=== PATIENT | male | born 1960 | race Caucasian/White ===

== ENCOUNTER 2017-04-29 20:34 | Inpatient (IN) | payer MEDICARE, OTHER ==
[~2017-04-29] VITALS: Ht 188 cm; Wt 77.1 kg
[2017-04-29] MEDS ORDERED: IV NORMAL SALINE 1000 ML BAG IV ONE (21:15)
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
[2017-04-29 21:30] LABS: BASOPHILS # (AUTO) 0.1 K/uL (0.0-8.0); EOSINOPHILS # (AUTO) 0.1 K/uL (0.0-0.7); EOSINOPHILS % (AUTO) 1.4 % (0.0-7.0); HEMOGLOBIN 15.6 G/DL (14.0-18.0); LYMPHOCYTES # (AUTO) 2.7 K/UL (0.8-4.8); LYMPHOCYTES % (AUTO) 28.1 % (20.5-51.5); MEAN CORPUSCULAR HEMOGLOBIN 27.9 UUG (27.0-31.0); MEAN CORPUSCULAR HGB CONC 33 g/dL (32.0-37.0); MEAN CORPUSCULAR VOLUME 84.3 FL (82.0-92.0); MONOCYTES # (AUTO) 0.9 K/UL (0.1-1.30); NEUTROPHILS % (AUTO) 60.5 % (38.5-71.5); PLATELET COUNT (AUTO) 308 K/UL (150-450); RED BLOOD CELL COUNT(AUTO) 5.57 MIL/UL (4.7-6.1); WHITE BLOOD COUNT (AUTO) 9.8 K/UL (4.0-11.2)
[2017-04-29 21:38] LABS: CREATININE 0.8 mg/dL (0.6-1.3); POTASSIUM 3.3 mmol/L (3.5-5.1)
[2017-04-29 21:44] LABS: BILIRUBIN,DIRECT 0.1 mg/dL (0.0-0.2); BILIRUBIN,TOTAL 0.2 mg/dL (0.2-1.0)
--- NOTE | 2017-04-29 22:30 | NUR ---
Per Dr. Maria condom catheter placed on pt, straight cath not required at this time.
--- NOTE | 2017-04-29 22:54 | NUR ---
Pt to and from CT via gurmario. Pt resting in position of comfort for self. No complaints at this time.
[2017-04-29] MEDS ORDERED: POT CHLORIDE/POT BICARB/CIT AC 25 MEQ TABLET.EFF PO ONE (23:30)
--- NOTE | 2017-04-29 23:43 | NUR ---
Condom cath unsuccessful. Straight cath done per Dr. Maria. UA collected and sent. Pt resting in position of comfort for self. No complaints at this time
[2017-04-30] MEDS ORDERED: POTASSIUM BICARBONATE/CIT AC 25 MEQ TABLET.EFF ONE (00:10)
[2017-04-30 00:20] LABS: *BILIRUBIN,URIN NEGATIVE (NEGATIVE); *BLOOD, URINE NEGATIVE (NEGATIVE); *CLARITY,URINE CLEAR (CLEAR); *COLOR,URINE YELLOW (YELLOW); *KETONES,URINE NEGATIVE (NEGATIVE); *PROTEIN,URINE NEGATIVE (NEGATIVE); *UROBILINOGEN,URINE 0.2 E.U./dl (NORMAL); LEUKOCYTE ESTERASE ,URINE NEGATIVE (NEGATIVE); NITRITE, URINE NEGATIVE (NEGATIVE); PH,URINE 5.5 (5.0-8.0); UGLUCOSE NEGATIVE (NEGATIVE)
--- NOTE | 2017-04-30 00:44 | NUR ---
Report called to MYRIAM Ceja. Preparing to transfer pt to the floor.
[2017-04-30 01:04] LABS: BACTERIA,URINE NONE SEEN /HPF (NONE SEEN); RBC,URINE 0-3 /HPF (0-3); SQUAMOUS EPITHELIAL CELL,UR FEW /HPF (NONE SEEN); TRANSITIONAL EPI CELLS,URINE FEW /LPF (NONE SEEN); URINE AMORPHOUS URATE MODERATE /HPF; WBC,URINE 0-3 /HPF (0-3)
[2017-04-30 02:00] VITALS: BP 114/76
[2017-04-30] MEDS ORDERED: ONDANSETRON 4 MG/2 ML VIAL IV PRN (02:00)
[2017-04-30] MEDS ORDERED: ZOLPIDEM 5 MG TABLET PO PRN (02:00)
[2017-04-30] MEDS ORDERED: HYDROCODONE/APAP 5-325MG TABLET PO PRN (02:00)
[2017-04-30] MEDS ORDERED: Z GUARD REMEDY PASTE 57 GM TUBE TOP PRN (02:00)
[2017-04-30] MEDS ORDERED: MAGNESIUM HYDROXIDE 30 ML LIQUID UDC PO PRN (02:00)
--- NOTE | 2017-04-30 02:30 | NUR ---
RECEIVED PATIENT FROM E.R. ADMITTED BECAUSE OF FAILURE TO THRIVE. BROUGHT IN TO [facility] BY A PRIVATE AMBULANCE WHEREIN THE PLACE WHERE HE WAS PICKED UP IS DESCRIBED DIRTY AND UNKEMP PER E.R. NOTE. PATIENT IS A POOR HISTORIAN, NO PHM PER RECORD. PATIENT IS ALERT AND ORIENTED TO SELF, PLACE AND TIME BUT FORGETFUL AND CONFUSE AT TIMES. ON R.A. O2 SATS AT HIGH 90'S NOT ON RESPI DISTRESS OTHERWISE VITAL SIGNS ARE STABLE. NOTED ULCERATIVE SORE ON VARIOUS STAGES OF HEALING OVER RIGHT FLANK AND RASH/SORES OVER RIGHT TESTICLES, PHOTO TAKEN AND PLACED IN CHART. ANTOINE SCORE OF 12, ORDERED FOR SPECIALTY MATTRESS. ORIENTED PATIENT ABOUT THE ROOM FACILITIES. CALL LIGHT WITHIN REACH. KEPT SAFE AND MONITORED.
--- NOTE | 2017-04-30 05:56 | NUR ---
SLEPT FOR FEW HOURS. GIVEN WATER AND ABLE TO SWALLOW WITH NO ASPIRATION. ORDERED REGULAR DIET. STARTED DVT PUMPS. OTHERWISE PATIENT IS NOT IN DISTRESS. CALL LIGHT WITHIN REACH.
[2017-04-30 06:05] VITALS: BP 113/75
[2017-04-30] MEDS ORDERED: INFLUENZA VACCINE 2017-2018 0.5 ML DISP.SYRIN IM ONE (07:15)
--- NOTE | 2017-04-30 07:25 | NUR ---
RECEIVED REPORT FROM [facility] RESIDENT NURSE, PATIENT IN BED ASLEEP, NO EVIDENCE OF DISTRESS NOTED. BED IN LOW POSITION, SIDE RAILS UP X2.
--- NOTE | 2017-04-30 08:30 | NUR ---
PATIENT WAS TRANSFERRED TO A FIRST STEP MATTRESS, PATIENT WAS GIVEN A THOROUGH BED BATH AND HEAVY SCALING AND DIRT FROM LEGS AND BODY REMOVED.
[2017-04-30 11:14] VITALS: BP 108/69
[2017-04-30 15:06] VITALS: BP 142/70
[2017-04-30 20:00] VITALS: BP 105/73
--- NOTE | 2017-04-30 21:00 | NUR ---
RECEIVED PATIENT AWAKE AND COMFORTABLE IN BED. NOT IN DISTRESS NO COMPLAIN OF PAIN. INCONTINENT CARE DONE. VITAL SIGNS ARE STABLE. CALL LIGHT WITHIN REACH.
--- NOTE | 2017-05-01 06:27 | NUR ---
PATIENT SLEPT THRU THE NIGHT. NO APPARENT EVENT. INCONTINENT CARE DONE. CALL LIGHT WITHIN REACH.
[2017-05-01 06:46] LABS: BASOPHILS # (AUTO) 0.1 K/uL (0.0-8.0); BASOPHILS % (AUTO) 0.6 % (0.0-2.0); EOSINOPHILS # (AUTO) 0.2 K/uL (0.0-0.7); EOSINOPHILS % (AUTO) 1.5 % (0.0-7.0); HEMATOCRIT 43.9 % (40-50); HEMOGLOBIN 15.3 G/DL (14.0-18.0); LYMPHOCYTES # (AUTO) 3.3 K/UL (0.8-4.8); LYMPHOCYTES % (AUTO) 31.5 % (20.5-51.5); MEAN CORPUSCULAR HEMOGLOBIN 29.5 UUG (27.0-31.0); MEAN CORPUSCULAR HGB CONC 35 g/dL (32.0-37.0); MONOCYTES # (AUTO) 0.9 K/UL (0.1-1.30); MONOCYTES % (AUTO) 8.7 % (0.0-11.0); NEUTROPHILS % (AUTO) 57.7 % (38.5-71.5); PLATELET COUNT (AUTO) 286 K/UL (150-450); RED BLOOD CELL COUNT(AUTO) 5.16 MIL/UL (4.7-6.1); WHITE BLOOD COUNT (AUTO) 10.5 K/UL (4.0-11.2)
[2017-05-01 06:59] VITALS: BP 124/69
[2017-05-01 07:02] LABS: CREATININE 0.8 mg/dL (0.6-1.3); PHOSPHOROUS 3.5 mg/dL (2.5-4.9); POTASSIUM 3.7 mmol/L (3.5-5.1)
--- NOTE | 2017-05-01 07:10 | NUR ---
RECEIVED REPORT FROM ADVERTISING REPRESENTATIVE NURSE, PATIENT IN BED AWAKE, NO EVIDENCE OF DISTRESS NOTED, BED IN LOW POSITION, SIDE RAILS UP X2.
[2017-05-01 11:56] VITALS: BP 129/75
--- NOTE | 2017-05-01 12:39 | NUR ---
WOUND CARE CONSULT: PT PRESENTS WITH MULTIPLE SCARS WHICH LOOK LIKE DOTS. DEFER TO MD. ALL SKIN PROTECTION MEASURES IN PLACE. WILL SEE PRN. GEIGER IN AGREEMENT WITH PLAN OF CARE. Addendum: 05/01/17 at 1241 by DEN HANSEN RN Amended: Links added.
--- NOTE | 2017-05-01 13:00 | NUR ---
Patient was transported via ambulance to [facility] for MRI services. No evidence of distress noted at time of departure.
--- NOTE | 2017-05-01 15:00 | NUR ---
Patient returned from [facility] and notification that patient was not compliant with procedure and couldn't get the MRI complete.
[2017-05-01 16:11] VITALS: BP 131/83
--- NOTE | 2017-05-01 17:00 | NUR ---
Patient appeared to be extremely agitated, he was yelling and asking to be taken to his room. it was explained to patient that he is sick and in the hospital and thanked me. This occurred multiple times.
--- NOTE | 2017-05-01 19:30 | NUR ---
RECEIVED PATIENT IN BED, AWAKE, RESPONSE WHEN ASK QUESTION, NO SOB NO CHEST PAIN, DENIES PAIN AT THIS TIME, KEPT CLEAN AND DRY, KEPT SKIN CLEAN AND DRY, CONT TO MONITOR
[2017-05-01 20:35] VITALS: BP 103/66
--- NOTE | 2017-05-01 22:20 | NUR ---
PATIENT UNABLE TO URINATE, BLADDER SCAN WAS DONE AND PATIENT HAS 500 CC URINE RESULTS, NOTIFIED Johnny MAJANO, WITH ORDER TO DO STRAIGHT CATH IF BLADDER SCAN RESULT IS 500 CC OR MORE.
[2017-05-01] MEDS: ACETAMINOPHEN 325 MG TABLET PO PRN (22:28)
[2017-05-02 04:00] VITALS: BP 117/79
--- NOTE | 2017-05-02 04:22 | NUR ---
PATIENT SLEPT MOST OF THE NIGHT, NO SOB NO CHEST PAIN NOTED, ABDOMEN SOFT URINE IN THE DIAPER IN MODERATE AMOUNT, KEPT CLEAN AND DRY, TURN AND REPOSITION, DENIES PAIN AT THIS TIME, CALL LIGHT WITHIN REACH.
[2017-05-02 06:32] LABS: BASOPHILS # (AUTO) 0.1 K/uL (0.0-8.0); BASOPHILS % (AUTO) 0.9 % (0.0-2.0); EOSINOPHILS # (AUTO) 0.1 K/uL (0.0-0.7); EOSINOPHILS % (AUTO) 1.1 % (0.0-7.0); HEMATOCRIT 47.5 % (40-50); HEMOGLOBIN 15.9 G/DL (14.0-18.0); LYMPHOCYTES # (AUTO) 1.8 K/UL (0.8-4.8); LYMPHOCYTES % (AUTO) 18.9 % (20.5-51.5); MEAN CORPUSCULAR HEMOGLOBIN 28.8 UUG (27.0-31.0); MEAN CORPUSCULAR HGB CONC 34 g/dL (32.0-37.0); MONOCYTES # (AUTO) 0.7 K/UL (0.1-1.30); MONOCYTES % (AUTO) 7.7 % (0.0-11.0); NEUTROPHILS % (AUTO) 71.4 % (38.5-71.5); PLATELET COUNT (AUTO) 291 K/UL (150-450); RED BLOOD CELL COUNT(AUTO) 5.52 MIL/UL (4.7-6.1); WHITE BLOOD COUNT (AUTO) 9.7 K/UL (4.0-11.2)
[2017-05-02 09:57] LABS: CREATININE 0.9 mg/dL (0.6-1.3); PHOSPHOROUS 3.6 mg/dL (2.5-4.9); POTASSIUM 3.7 mmol/L (3.5-5.1)
[2017-05-02 11:32] VITALS: BP 110/70
[2017-05-02 15:45] VITALS: BP 111/75
--- NOTE | 2017-05-02 19:50 | NUR ---
PATIENT AWAKE ON BED ABLE TO VERBALIZE HIS NEEDS. SPEECH DELAYED NO DISCOMFORT NOTED. WILL CONTINUE TO MONITOR
[2017-05-02 20:00] VITALS: BP 116/81
--- NOTE | 2017-05-02 21:00 | NUR ---
PATIENT HAS AN EPISODE OF VOMITING YELLOW VOMITUS WITH FOOD PARTICLES ABOUT 200 ML. ASPIRATION PRECAUTIONS OBSERVED. NOTICED HIS ARM SHAKING FOR ABOUT 6 SECS TWO TIMES ABOUT 3 MINUTE APART. PATIENT OPEN TO EYES ON SHAKING THE PATIENT. HE IS NOT RESPONDING TO VERBAL COMMANDS. KEPT HOB ELEVATED. PLACED ON 2L O2 VIA NC. B/P 93/60 HR 125. LEFT MESSAGE TO THE DOCTOR
[2017-05-02] MEDS ORDERED: IV NS 1000 ML 1,000 ML IV ONE (21:30)
[2017-05-02] MEDS ORDERED: LORAZEPAM 2 MG/1 ML VIAL IV ONE (21:30)
--- NOTE | 2017-05-02 21:30 | NUR ---
RESPONDED WITH NEW ORDERS. HEART RATE [id number] . PLACED PATIENT ON TELEMETRY Addendum: 05/02/17 at 2231 by ZAKI GREGG RN DR. PIZANO INSTRUCTED TO CONTACT CORRECTIONAL OFFICER CAPTAIN OUTREACH WORKER IF THE HR SUSTAINS AFTER GIVING MEDICATION
[2017-05-02 22:06] LABS: ABG BASE EXCESS -0.2 mmol/L; ABG HCO3 21.1 mmol/L; ABG PCO2 26.9 mmHg (35.0-45.0); ABG PH 7.512 (7.350-7.450); ABG SITE RIGHT RADIAL; ABG TOTAL HEMOGLOBIN 16.6 G/dL (13.5-18.0); COHb 1.1 % (0.5-1.5); MetHb 0.4 % (0.0-1.5); VENT MODE Nasal Cannula
--- NOTE | 2017-05-02 22:10 | NUR ---
PAGED [facility] HR [phone]
[2017-05-02] MEDS ORDERED: DIGOXIN 500 MCG/2 ML AMP IV ONE (22:45)
[2017-05-02] MEDS ORDERED: DIGOXIN 500 MCG/2 ML AMP ONE (22:53)
[2017-05-02] MEDS ORDERED: IV NS 1000 ML 1,000 ML IV PRN (23:30)
--- NOTE | 2017-05-02 23:30 | NUR ---
PATIENT WAS SEEN BY DR. PIZANO WITH NEW ORDERS
--- NOTE | 2017-05-02 23:40 | NUR ---
PATIENT WAS PICKED UP FOR STAT CT SCAN AND STAT CHEST XRAY PER ORDER
[2017-05-03] VITALS (8 sets, daily range): BP systolic 84–123; BP diastolic 52–79
[2017-05-03] MEDS ORDERED: PIPERACILLIN/TAZO 4.5 GM VIAL IV ONE (00:14)
--- NOTE | 2017-05-03 00:15 | NUR ---
PATIENT WAS BROUGHT BACK FROM CT . PATIENT SLEEPING . DRIVER TRAINEE ON SVT WITH [id number]. KEPT PATIENT CLEAN. PATIENT HAS BMX 1. F/C DRAINING YELLOW URINE. WILL CONTINUE OT MONITOR
[2017-05-03] MEDS: PIPERACILLIN SODIUM/TAZOBACTAM 4.5 G in IV DEXTROSE 5% 50 ML IV SCH ×4 (00:25→21:58)
[2017-05-03] MEDS ORDERED: DIGOXIN 500 MCG/2 ML AMP IV ONE (01:30)
--- NOTE | 2017-05-03 01:35 | NUR ---
received patient transfer to [facility] status, heart rate remains sustained 159 bpm, bp 107/71,temp 100. notified,ordered received,Digoxin 250 mcg iv admin and Tylenol 650 mg sup for fever,patient remains sleepy ,continue closely monitor.
[2017-05-03] MEDS: ACETAMINOPHEN 650 MG SUPP.RECT RC PRN ×2 (01:37→14:18)
[2017-05-03] MEDS ORDERED: DIGOXIN 500 MCG/2 ML AMP ONE (01:46)
[2017-05-03] MEDS ORDERED: ACETAMINOPHEN 650 MG SUPP.RECT RC ONE (01:48)
--- NOTE | 2017-05-03 02:00 | NUR ---
patient sleeping, heart rate down to 145- 146, ST on monitor.
--- NOTE | 2017-05-03 04:05 | NUR ---
PATIENT REMAINS SLEEPY, HEART RATE DOWN TO 110 BPM,BP 90/52, O2 SAT 97% ON O2 2L/M.
[2017-05-03 06:29] LABS: CREATININE 1.4 mg/dL (0.6-1.3); MAGNESIUM 1.9 mg/dL (1.8-2.4); PHOSPHOROUS 2.9 mg/dL (2.5-4.9); POTASSIUM 3.6 mmol/L (3.5-5.1)
[2017-05-03 06:45] LABS: BASOPHILS # (AUTO) 0.1 K/uL (0.0-8.0); BASOPHILS % (AUTO) 0.4 % (0.0-2.0); HEMATOCRIT 47.5 % (36.7-47.1); HEMOGLOBIN 15.8 g/dL (12.5-16.3); LYMPHOCYTES # (AUTO) 0.5 K/uL (20.0-40.0); LYMPHOCYTES % (AUTO) 2.2 % (20.5-51.5); MEAN CORPUSCULAR HEMOGLOBIN 28.5 uug (23.8-33.4); MEAN CORPUSCULAR HGB CONC 33 g/dL (32.5-36.3); MEAN CORPUSCULAR VOLUME 85.5 fL (73.0-96.2); MONOCYTES # (AUTO) 0.6 K/uL (2.0-10.0); NEUTROPHILS # (AUTO) 19.7 K/uL (1.8-8.9); NEUTROPHILS % (AUTO) 94.4 % (38.5-71.5); PLATELET COUNT (AUTO) 241 K/uL (152-348); RED BLOOD CELL COUNT(AUTO) 5.55 MIL/uL (4.06-5.63)
--- NOTE | 2017-05-03 07:00 | NUR ---
PATIENT ASLEEP, TEMP 98.5, SINUS TACHYCARDIA RATE 100'S,GOOD URINE OUT PUT/SHIFT.
[2017-05-03 07:02] LABS: WHITE BLOOD COUNT (AUTO) 20.9 K/uL (3.6-10.2)
--- NOTE | 2017-05-03 08:00 | NUR ---
answers "yah" but doesn't opens eyes, slurred speech when asked questions, able to follow some simple commands like grasping my hands and lifting his legs, tele SR 90's. 02 at 2l/nc, needs attended, safety measures maintained, bed alarm on
[2017-05-03] MEDS: VANCOMYCIN IV 1,250 MG in IV DEXTROSE 5% 500 ML IV SCH (09:19)
[2017-05-03 09:24] LABS: BAND % (MANUAL) 20 % (0-10); LYMPHOCYTES % (MANUAL) 2 % (20-40); METAMYELOCYTES % 1 % (0-1); MONOCYTES % (MANUAL) 3 % (2-10); NEUTROPHILS % (MANUAL) 74 % (42-75)
--- NOTE | 2017-05-03 12:00 | NUR ---
more awake, follows simple commands, but answers only "yah" to questions in Indonesian and Ghanaian, fed by candle maker and swallows good, no choking episode noted, aspiration precaution observed, tele ST 120's
--- NOTE | 2017-05-03 12:19 | NUR ---
PHARMACY NOTE: (VANCOMYCIN DOSING) Subjective: Vancomycin to start for this 56 YO male patient for r/o aspiration & skin ulceration Objective: ht 6' 2'' wt 170 lb bun /scr 17/1.4 wbc 20.9 temp 98.6 A/P: Will start vanco 1250mg IVPB q17h for predicted vanco trough level of 15 mcg/ml at steady state. 1st dose is due today at 0930. Plan to draw vanco trough level before 4th dose (not yet ordered). Will monitor srcr/bun & adjust the dose if needed. Will monitor daily.
--- NOTE | 2017-05-03 14:18 | NUR ---
restless and grimacing- medicated with Tylenol 650mg rectally- incontinent of stool soft formed prior to medication- washed and kept clean and dry
--- NOTE | 2017-05-03 15:00 | NUR ---
brother here visiting, able to answer simple questions
--- NOTE | 2017-05-03 16:00 | NUR ---
T-99.8 inspite of tylenol 650mg rectally given earlier- cooling measures provided HR 120's
--- NOTE | 2017-05-03 17:50 | NUR ---
fed by barrer and tacker- aspiration precautions observed, no choking episode noted
--- NOTE | 2017-05-03 18:54 | NUR ---
medicated for nausea, kept head of bed elevated, no distress noted, tele ST 120's, safety measures maintained, bed alarm on
--- NOTE | 2017-05-03 19:20 | NUR ---
RECEIVED PATIENT ALERT, RESPONSIVE,ANSWER SIMPLE QUESTIONS,TEMP 98.6, NO NAUSEA NOTED, ZOFRAN EFFECTIVE,ASPIRATION PRECAUTIONS, HOB ELEVATED,SINUS TACHYCARDIA 11O'S ON MONITOR, SAFETY MEASURE MAINTAINS,ALARM ON.
--- NOTE | 2017-05-04 00:10 | NUR ---
PATIENT SLEEP INTERMITTENTLY,HEART RATE 100'S SR,NO FEVER,NO NAUSEA NOTED.
[2017-05-04] MEDS: VANCOMYCIN IV 1,250 MG in IV DEXTROSE 5% 500 ML IV SCH ×2 (02:46→14:31)
[2017-05-04 04:00] VITALS: BP 96/65
[2017-05-04] MEDS: ACETAMINOPHEN 325 MG TABLET PO PRN (05:10)
[2017-05-04] MEDS: PIPERACILLIN SODIUM/TAZOBACTAM 4.5 G in IV DEXTROSE 5% 50 ML IV SCH ×3 (06:09→21:20)
--- NOTE | 2017-05-04 06:57 | NUR ---
NO FEVER, PATIENT ALERT ,CALM AND CO OPERATIVE,TOOK FLUID WELL,ASPIRATION PRECAUTIONS OBSERVED.
[2017-05-04 07:55] VITALS: BP 92/58
--- NOTE | 2017-05-04 08:00 | NUR ---
Pt is in no acute distress. Aspiration precaution implemented. IV on right hand intact. Call light is within reach.
[2017-05-04 12:15] LABS: BASOPHILS # (AUTO) 0.1 K/uL (0.0-8.0); BASOPHILS % (AUTO) 1.3 % (0.0-2.0); EOSINOPHILS # (AUTO) 0.1 K/uL (0.0-0.7); EOSINOPHILS % (AUTO) 1.3 % (0.0-7.0); HEMATOCRIT 47.7 % (40-50); LYMPHOCYTES # (AUTO) 1.1 K/UL (0.8-4.8); LYMPHOCYTES % (AUTO) 14.4 % (20.5-51.5); MEAN CORPUSCULAR HGB CONC 32 g/dL (32.0-37.0); MEAN CORPUSCULAR VOLUME 85.5 FL (82.0-92.0); MONOCYTES # (AUTO) 0.8 K/UL (0.1-1.30); MONOCYTES % (AUTO) 10.3 % (0.0-11.0); NEUTROPHILS # (AUTO) 5.3 K/UL (1.8-8.9); NEUTROPHILS % (AUTO) 72.7 % (38.5-71.5); PLATELET COUNT (AUTO) 201 K/UL (150-450); RED BLOOD CELL COUNT(AUTO) 5.58 MIL/UL (4.7-6.1); WHITE BLOOD COUNT (AUTO) 7.4 K/UL (4.0-11.2)
[2017-05-04 12:17] LABS: CREATININE 0.9 mg/dL (0.6-1.3); POTASSIUM 3.7 mmol/L (3.5-5.1)
[2017-05-04 13:25] VITALS: BP 99/59
[2017-05-04 14:47] LABS: BAND % (MANUAL) 9 % (0-10); EOSINOPHILS % (MANUAL) 2 % (0-8); LYMPHOCYTES % (MANUAL) 15 % (20-40); MONOCYTES % (MANUAL) 10 % (2-10); NEUTROPHILS % (MANUAL) 64 % (42-75)
--- NOTE | 2017-05-04 15:04 | NUR ---
PHARMACY NOTE: (VANCOMYCIN DOSING) Subjective: Vancomycin to continue for this 56 YO male patient for r/o aspiration & skin ulceration Objective: ht 6' 2'' wt 170 lb bun /scr 12/0.9 wbc 7.4 temp 98.8 A/P: Renal function is significantly improved. Will change vanco 1250mg IVPB q17h to q11hrs for predicted vanco trough level of 15.49 mcg/ml at steady state. 2nd dose is given today at 1430. Plan to draw vanco trough level before 4th dose (ordered for tomorrow at 1200). Will monitor srcr/bun & adjust the dose if needed. Will monitor daily.
[2017-05-04 16:37] VITALS: BP 103/65
--- NOTE | 2017-05-04 18:00 | NUR ---
No aspiration noted this shift. PT had good urine output. Pt had good appetite throughout shift. Call light is within reach.
[2017-05-04 20:00] VITALS: BP 113/77
--- NOTE | 2017-05-04 20:00 | NUR ---
PATIENT AWAKE,ALERT,CO OPERATIVE,EEG DONE AT BEDSIDE,NO N/V,DENIES PAIN/DISCOMFORT.
--- NOTE | 2017-05-05 00:35 | NUR ---
PATIENT SLEEP WELL,FALL AND ASPIRATION PRECAUTION MAINTAINED, BED ALARM ON.CLOSELY MONITOR.
[2017-05-05] MEDS: VANCOMYCIN IV 1,250 MG in IV DEXTROSE 5% 500 ML IV SCH (01:22)
[2017-05-05] MEDS: PIPERACILLIN SODIUM/TAZOBACTAM 4.5 G in IV DEXTROSE 5% 50 ML IV SCH ×2 (05:39→13:03)
[2017-05-05 06:08] VITALS: BP 122/89
--- NOTE | 2017-05-05 06:41 | NUR ---
PATIENT IS AFEBRILE,MORE ALERT,NO SEIZURE/SHAKING ACTIVITY, URINE CLOUDY, LARGE AMOUNT.
--- NOTE | 2017-05-05 07:30 | NUR ---
RECEIVED PATIENT ON FIRST STEP IFEANYI AWAKE ALERT TO SELFWITH CONFUSSION AND DISORIENTATION TOTALLY DEPENDENT ON NURSES FOR ALL ADL.TURNED AND REPOSITIONED ON ROOM AIR WITH NO SHORTNESS OF BREATH REMAIN ON ATB ORDERED WITH NO ADVERSE OR ALLERGIC REACTIONS AT THIS TIME.MADE COMFORTABLE AND WILL CONTINUE TO OBSERVE.
[2017-05-05] MEDS: LACTOBACILLUS RHAMNOSUS GG 1 EACH CAPSULE PO SCH ×2 (08:17→20:58)
[2017-05-05 11:09] VITALS: BP 117/75
[2017-05-05 11:22] LABS: BASOPHILS # (AUTO) 0.1 K/uL (0.0-8.0); BASOPHILS % (AUTO) 0.8 % (0.0-2.0); EOSINOPHILS # (AUTO) 0.1 K/uL (0.0-0.7); EOSINOPHILS % (AUTO) 0.8 % (0.0-7.0); HEMATOCRIT 47.1 % (40-50); HEMOGLOBIN 15.9 G/DL (14.0-18.0); LYMPHOCYTES # (AUTO) 1.4 K/UL (0.8-4.8); LYMPHOCYTES % (AUTO) 21.5 % (20.5-51.5); MEAN CORPUSCULAR HEMOGLOBIN 28.5 UUG (27.0-31.0); MEAN CORPUSCULAR HGB CONC 34 g/dL (32.0-37.0); MEAN CORPUSCULAR VOLUME 84.3 FL (82.0-92.0); MONOCYTES # (AUTO) 0.6 K/UL (0.1-1.30); MONOCYTES % (AUTO) 9.3 % (0.0-11.0); NEUTROPHILS # (AUTO) 4.2 K/UL (1.8-8.9); NEUTROPHILS % (AUTO) 67.6 % (38.5-71.5); PLATELET COUNT (AUTO) 243 K/UL (150-450); RED BLOOD CELL COUNT(AUTO) 5.59 MIL/UL (4.7-6.1); WHITE BLOOD COUNT (AUTO) 6.4 K/UL (4.0-11.2)
[2017-05-05 11:39] LABS: BILIRUBIN,TOTAL 0.3 mg/dL (0.2-1.0); MAGNESIUM 2.3 mg/dL (1.8-2.4); PHOSPHOROUS 3.4 mg/dL (2.5-4.9); POTASSIUM 3.9 mmol/L (3.5-5.1); TOTAL PROTEIN, SERUM 7.8 g/dL (6.4-8.2)
[2017-05-05 11:51] LABS: THYROID STIMULATING HORMONE 1.547 mIU/mL (0.358-3.740)
[2017-05-05] MEDS ORDERED: LEVOFLOXACIN 500 MG TABLET PO SCH (14:00)
[2017-05-05] MEDS ORDERED: ACET325T53 PO (14:06)
[2017-05-05] MEDS ORDERED: LACT1CAP57 PO (14:06)
[2017-05-05] MEDS ORDERED: LEVO500T2 PO (14:06)
--- NOTE | 2017-05-05 14:11 | NUR ---
ORDER TO DISCHARGE PATIENT TO SNF TODAY RECEIVED AND CARRIED OUT
[2017-05-05 15:04] VITALS: BP 100/68
--- NOTE | 2017-05-05 15:37 | NUR ---
PATIENTS BROTHER ZAK PETERSON HERE AND AWARE THAT PATIENT WILL BE DISCHARGED TO TO [facility] TODAY AND HE STATED OKAY WILL GO THERE TOMORROW TO SEE PATIENT.PATIENT AWARE BUT HE IS CONFUSED AND DISORIENTED.
--- NOTE | 2017-05-05 17:49 | NUR ---
CALLED [facility] SPOKE WITH ERIN AND REPORT GIVEN FOR CONTINUING CARE..
--- NOTE | 2017-05-05 18:49 | NUR ---
AWAITING FOR PATIENT TO BE PICKED UP BY THE AMBULANCE.ENDORSED
[2017-05-05 20:00] VITALS: BP 110/77
--- NOTE | 2017-05-05 21:47 | NUR ---
nsg: pt picked up by ambulance. v/s stable.
== END 2017-05-05 22:30 | DRG 640 ==
LOC: ER 20:35 → MED 04-30 00:39 → TELE-TD 05-02 22:38 → TELE 05-04 13:33 → MED 05-04 15:00
PROVIDERS: ADMIT Nurse Practitioner Acute Care; ATTEND Internal Medicine
DX: R62.7 Adult failure to thrive (principal); N17.0 Acute kidney failure with tubular necrosis; E87.3 Alkalosis; E44.0 Moderate protein-calorie malnutrition; I47.1 Supraventricular tachycardia; E87.1 Hypo-osmolality and hyponatremia; G35 Multiple sclerosis; E87.6 Hypokalemia; D72.829 Elevated white blood cell count, unspecified; Z87.891 Personal history of nicotine dependence; R53.1 Weakness; F19.11 Other psychoactive substance abuse, in remission; R73.9 Hyperglycemia, unspecified; Z86.73 Personal history of transient ischemic attack (TIA), and cerebral infarction without residual deficits; Z68.21 Body mass index [BMI] 21.0-21.9, adult; L98.499 Non-pressure chronic ulcer of skin of other sites with unspecified severity
CPT/HCPCS: 36415; 36600; 70030-TC; 70450; 71010; 71250; 83735; 84100; 84443; 85025; 85730; 92523; 92526; 93005; 93307; 97110; 97530; A4663; C1758; J1160; J2060; J2405; J2543; J3370; J7030; J7060